=== PATIENT | male | born 1975 | race Caucasian/White ===

== ENCOUNTER → 2019-01-14 | Outpatient (CLI) | payer OTHER ==
--- NOTE | 2019-01-14 15:55 | RAD ---
Examination: EXT NON VASC LEFT History: Postoperative swelling in the left axilla Comparison/Correlation: None Findings: Ultrasound imaging of the left axillary region was performed. There is a mildly complex fluid collection measuring 4.2 cm x 2.5 cm tall by 2.4 cm which appears of a tract extending superiorly to the skin. No flow evident on color Doppler imaging. Impression: Left axillary subcutaneous mildly complex fluid collection with a tract extending superiorly to the skin. Electronically signed by: Aquilino Mayorga MD (01/14/2019 3:52 PM) [facility] [place]
== END | disposition home or self-care (01) ==
LOC: US 14:48
PROVIDERS: ATTEND Surgery
DX: M96.89 Other intraoperative and postprocedural complications and disorders of the musculoskeletal system (principal); M79.89 Other specified soft tissue disorders
CPT/HCPCS: 76881

== ENCOUNTER → 2019-06-20 | Outpatient (CLI) | payer OTHER ==
--- NOTE | 2019-06-20 14:29 | RAD ---
HAND LEFT 3V DATE: 06/20/2019 12:00 AM INDICATION: Hand pain COMPARISON: None. FINDINGS: Bones: There is no evidence of acute fracture or dislocation. Joints: The joint spaces are normal. Miscellaneous: None. IMPRESSION: No evidence of acute fracture. Electronically signed by: Leo Mccall MD (06/20/2019 2:26 PM) [facility] [place]
== END ==
LOC: DXRAD 12:46
PROVIDERS: ATTEND Family Medicine
DX: M79.642 Pain in left hand (principal)
CPT/HCPCS: 73130